=== PATIENT | female | born 1960 | race Caucasian/White ===

== ENCOUNTER → 2017-12-27 | Outpatient (CLI) | payer BC ==
[~2017-12-27] MED LIST: ENABLEX15 MG PO; FUROSEMIDE20 MG PO; GABAPENTIN300 MG PO; LISINOPRIL10 MG PO; ORACEA40 MG PO; PREVIDENT 500051 GM; REQUIP1 MG PO; ROSADAN45 GM; VIMOVO 500-201 EACH PO; [UNRECOGNIZED DRUG - OTHER]
--- NOTE | 2017-12-27 17:48 | Diagnostic Imaging Report ---
CT scan of the RIGHT ELBOW, WITHOUT injected contrast. TECHNIQUE: Standard departmental protocols were used. Sagittal and coronal reformatted images were obtained. HISTORY: Swollen, painful, reported surgery 1999-ulnar nerve removed, fluid buildup COMPARISON: None available FINDINGS: Bones: No acute displaced fracture. No aggressive osseous lesion. Small enthesophyte at the lateral humeral epicondyle. Joints: No dislocation. No joint effusion. Soft tissues: Nonspecific mild regional superficial soft tissue fat stranding adjacent to the ulnar nerve proximal to the cubital tunnel. IMPRESSION: 1. Nonspecific soft tissue edema about the ulnar nerve proximal to the cubital tunnel. 2. Mild chronic lateral humeral epicondyle enthesopathy. Signed by: Dr. Sb Burton D.O., M.M.M. on 12/27/2017 5:44 PM
== END ==
LOC: CT 10:31
PROVIDERS: ATTEND Plastic Surgery
DX: M25.521 Pain in right elbow (principal); M25.421 Effusion, right elbow; R60.9 Edema, unspecified; M77.11 Lateral epicondylitis, right elbow